=== PATIENT | female | born 1950 | race Two or more races ===

== ENCOUNTER 2021-09-24 01:27 | Emergency (ER) | payer OTHER ==
[~2021-09-24] VITALS: Ht 149.9 cm; Wt 59.0 kg
[2021-09-24] MEDS ORDERED: PLAVIX75 MG (01:55)
[2021-09-24] MEDS ORDERED: DESYREL (01:55)
[2021-09-24] MEDS ORDERED: LIPITOR20 MG (01:56)
[2021-09-24] MEDS ORDERED: LEVALBUTER0.63 MG/3 IH (08:41)
[2021-09-24] MEDS ORDERED: BUDESONIDE0.5 MG/21 IH (08:41)
[2021-09-24] MEDS ORDERED: MOXIFLOXACIN H400 MG PO (08:41)
[2021-09-24] MEDS ORDERED: MUCINEX DM ER1 EACH PO (08:41)
[2021-09-24] MEDS ORDERED: OSEL75CA PO (08:51)
== END 2021-09-24 15:48 | disposition home or self-care (01) ==
LOC: ER 01:27
DX: U07.1 COVID-19 (principal); R06.03 Acute respiratory distress; J40 Bronchitis, not specified as acute or chronic; E03.9 Hypothyroidism, unspecified; L89.629 Pressure ulcer of left heel, unspecified stage; L89.619 Pressure ulcer of right heel, unspecified stage; B96.5 Pseudomonas (aeruginosa) (mallei) (pseudomallei) as the cause of diseases classified elsewhere; B96.4 Proteus (mirabilis) (morganii) as the cause of diseases classified elsewhere